=== PATIENT | male | born 1975 | race Caucasian/White ===

== ENCOUNTER 2024-04-21 20:15 | Outpatient (CLI) | payer BC, SELFPAY | END 2024-04-21 20:16 | disposition home or self-care (01) | LOC: SLEEP 20:21 | PROVIDERS: PCP Family Medicine; Visit Provider Internal Medicine | DX: G47.33 Obstructive sleep apnea (adult) (pediatric) (principal); G47.10 Hypersomnia, unspecified | CPT/HCPCS: 95806; A9270 ==

== ENCOUNTER 2025-02-09 13:16 | Outpatient (CLI) | payer BC, SELFPAY | END 2025-02-09 13:17 | disposition home or self-care (01) | PROVIDERS: PCP Family Medicine; Visit Provider Family Medicine | DX: R07.9 Chest pain, unspecified (principal); Z13.6 Encounter for screening for cardiovascular disorders | CPT/HCPCS: 80048; 80061; 84484 ==